=== PATIENT | female | born 1980 | race Asian ===

== ENCOUNTER 2018-10-13 01:53 | Inpatient (IN) | payer OTHER ==
[~2018-10-13] VITALS: Ht 170.2 cm; Wt 68.2 kg
[2018-10-13] MEDS ORDERED: LACTATED RINGERS 1,000 ML IV SCH (01:54)
[2018-10-13] MEDS ORDERED: OXYTOCIN 30U/ 0.9% NaCL 500ML 500 ML IV ONE (01:54)
[2018-10-13] MEDS ORDERED: D5%-LACTATED RINGERS 1,000 ML IV SCH (01:54)
[2018-10-13] MEDS ORDERED: NEWBORN KIT ONE (02:00)
[2018-10-13] MEDS ORDERED: FENTANYL PF 100 MCG/2ML IVPush PRN (02:00)
[2018-10-13] MEDS ORDERED: CALCIUM CARBONATE 500 MG TAB.CHEW PO PRN (02:00)
[2018-10-13] MEDS ORDERED: ONDANSETRON 2MG/ML, 2ML IVPush PRN (02:00)
[2018-10-13] MEDS ORDERED: FENTANYL PF 100 MCG/2ML IV PRN (02:00)
[2018-10-13] MEDS ORDERED: TERBUTALINE 1 MG/ML, 1ML IVPush PRN (02:00)
[2018-10-13] MEDS ORDERED: SODIUM CITRATE/CITRIC ACID 30 ML UDC PO PRN (02:00)
[2018-10-13] MEDS ORDERED: METOCLOPRAMIDE 5 MG/ML, 2ML IVPush PRN (02:00)
[2018-10-13] MEDS ORDERED: OXYTOCIN 30U/ 0.9% NaCL 500ML 500 ML ONE ×2 (02:00→05:27)
[2018-10-13] MEDS ORDERED: BUPIVACAINE 0.25% ONE (02:13)
[2018-10-13] MEDS ORDERED: FENTANYL/BUPIV./NS/PF 250 ML EPIDCONT ONE (02:13)
[2018-10-13 02:17] LABS: BASOPHILS # (AUTO) 0.12 x10^3/uL (0-0.1); BASOPHILS % (AUTO) 1 % (0-1); EOSINOPHILS # (AUTO) 0.09 x10^3/uL (0-0.4); EOSINOPHILS % (AUTO) 1 % (1-7); LYMPHOCYTES # (AUTO) 1.23 x10^3/uL (1-3.4); LYMPHOCYTES % (AUTO) 11 % (22-44); MD NO; MEAN CORPUSCULAR HEMOGLOBIN 31.5 pg (27.0-34.8); MEAN CORPUSCULAR HGB CONC 34.2 g/dL (32.4-35.8); MEAN CORPUSCULAR VOLUME 92.1 fL (80-100); MEAN PLATELET VOLUME 8.5 fL (7.4-10.4); MONOCYTES # (AUTO) 0.57 x10^3/uL (0.2-0.8); MONOCYTES % (AUTO) 5 % (2-9); NEUTROPHILS # (AUTO) 9.27 x10^3/uL (1.8-6.8); NEUTROPHILS % (AUTO) 82 % (42-75); PLATELET COUNT 205 x10^3/uL (130-400); RED BLOOD COUNT 4.23 x10^6/uL (3.82-5.3); RED CELL DISTRIBUTION WIDTH 12.4 % (9.6-15.2)
[2018-10-13 03:19] VITALS: BP 120/69
[2018-10-13] MEDS ORDERED: MISOPROSTOL 200 MCG TABLET PR PRN (05:30)
[2018-10-13] MEDS ORDERED: OXYcodone/APAP 5/325MG TABLET PO PRN ×2 (05:30)
[2018-10-13] MEDS ORDERED: ACETAMINOPHEN 325 MG TABLET PO PRN (05:30)
[2018-10-13] MEDS ORDERED: MEASLES,MUMPS&RUBELLA VACC/PF 0.5 ML SQ PRN (05:30)
[2018-10-13] MEDS ORDERED: DIPH,PERTUSS(ACELL),TET VAC/PF NC IM-VACC PRN (05:30)
[2018-10-13] MEDS ORDERED: METHYLERGONOVINE 0.2 MG/ML IM PRN (05:30)
[2018-10-13] MEDS ORDERED: RHOGAM FROM BLOOD BANK 1 NOTE EA IM/IV ONE (05:30)
[2018-10-13] MEDS ORDERED: CARBOPROST TROMETHAMINE 250 MCG/ML, 1ML IM PRN (05:30)
[2018-10-13] MEDS: OXYTOCIN 30U/ 0.9% NaCL 500ML 500 ML IV SCH ×2 (05:38→15:13)
[2018-10-13] MEDS ORDERED: PREN1TAB60 PO (06:09)
[2018-10-13] MEDS: IBUPROFEN 600 MG TABLET PO PRN ×2 (08:29→20:50)
[2018-10-13 08:30] VITALS: BP 114/69
[2018-10-13] MEDS: PRENATAL VIT/IRON/FA 1 EACH TABLET PO SCH (09:00)
[2018-10-13 12:40] VITALS: BP 103/67
[2018-10-13 12:43] LABS: MEAN CORPUSCULAR HEMOGLOBIN 31.5 pg (27.0-34.8); MEAN CORPUSCULAR HGB CONC 34.4 g/dL (32.4-35.8); MEAN CORPUSCULAR VOLUME 91.7 fL (80-100); MEAN PLATELET VOLUME 8.5 fL (7.4-10.4); PLATELET COUNT 189 x10^3/uL (130-400); RED CELL DISTRIBUTION WIDTH 12.2 % (9.6-15.2)
[2018-10-13 13:03] LABS: BASOPHILS # (AUTO) 0.04 x10^3/uL (0-0.1); BASOPHILS % (AUTO) 0 % (0-1); EOSINOPHILS # (AUTO) 0.03 x10^3/uL (0-0.4); EOSINOPHILS % (AUTO) 0 % (1-7); LYMPHOCYTES # (AUTO) 1.25 x10^3/uL (1-3.4); LYMPHOCYTES % (AUTO) 9 % (22-44); MD SCAN; MONOCYTES % (AUTO) 5 % (2-9); NEUTROPHILS # (AUTO) 12.28 x10^3/uL (1.8-6.8); NEUTROPHILS % (AUTO) 86 % (42-75)
[2018-10-13 20:45] VITALS: BP 111/72
[2018-10-13] MEDS: DOCUSATE 100 MG CAPSULE PO PRN (20:50)
[2018-10-14] MEDS: OXYTOCIN 30U/ 0.9% NaCL 500ML 500 ML IV SCH ×3 (00:12→20:43)
[2018-10-14 01:16] VITALS: BP 107/69
[2018-10-14] MEDS: IBUPROFEN 600 MG TABLET PO PRN ×4 (03:01→21:54)
[2018-10-14 07:45] VITALS: BP 104/69
[2018-10-14] MEDS: PRENATAL VIT/IRON/FA 1 EACH TABLET PO SCH (08:57)
[2018-10-14] MEDS: DOCUSATE 100 MG CAPSULE PO PRN (08:57)
[2018-10-14 21:00] VITALS: BP 116/75
[2018-10-15] MEDS: IBUPROFEN 600 MG TABLET PO PRN ×2 (04:17→10:41)
[2018-10-15] MEDS: OXYTOCIN 30U/ 0.9% NaCL 500ML 500 ML IV SCH (04:57)
[2018-10-15 07:05] VITALS: BP 129/75
[2018-10-15] MEDS: PRENATAL VIT/IRON/FA 1 EACH TABLET PO SCH (07:59)
[2018-10-15] MEDS: DOCUSATE 100 MG CAPSULE PO PRN (07:59)
[2018-10-15] MEDS ORDERED: LIDOCAINE/PRILOCAINE CRM W/TEG 5GM TP ONE (09:00)
[2018-10-15] MEDS ORDERED: LIDOCAINE-MPF 1%, 2ML INFIL ONE (09:00)
== END 2018-10-15 14:45 | disposition home or self-care (01) | DRG 807 ==
LOC: LDOP 01:53 → LDIP 02:01 → 2NW 08:22
PROVIDERS: ADMIT Obstetrics & Gynecology; ATTEND Obstetrics & Gynecology
PROC: 10E0XZZ Delivery of Products of Conception, External Approach (ICD-10-PCS; principal; 2018-10-13)
PROC: 0HQ9XZZ Repair Perineum Skin, External Approach (ICD-10-PCS; 2018-10-13)
PROC: 3E0R3BZ Introduction of Anesthetic Agent into Spinal Canal, Percutaneous Approach (ICD-10-PCS; 2018-10-13)
PROC: 00HU33Z Insertion of Infusion Device into Spinal Canal, Percutaneous Approach (ICD-10-PCS; 2018-10-13)
DX: O69.1XX0 Labor and delivery complicated by cord around neck, with compression, not applicable or unspecified (principal); Z37.0 Single live birth; O70.0 First degree perineal laceration during delivery; Z3A.37 37 weeks gestation of pregnancy
CPT/HCPCS: 36415; 85025; 86850; 86900; 90715; G0378; J3490; J2590; J3010; J7120

== ENCOUNTER 2020-02-26 00:12 | Inpatient (IN) | payer OTHER ==
[~2020-02-26] VITALS: Ht 170.2 cm; Wt 65.9 kg
[~2020-02-26 00:12] MED LIST: PREN1TAB60 PO
[2020-02-26] MEDS ORDERED: D5%-LACTATED RINGERS 1,000 ML IV SCH (00:29)
[2020-02-26] MEDS ORDERED: OXYTOCIN 30U/ 0.9% NaCL 500ML 500 ML IV ONE (00:29)
[2020-02-26] MEDS ORDERED: TERBUTALINE 1 MG/ML, 1ML IVPush PRN (00:30)
[2020-02-26] MEDS ORDERED: ONDANSETRON 2MG/ML, 2ML IVPush PRN (00:30)
[2020-02-26] MEDS ORDERED: FENTANYL PF 100 MCG/2ML IVPush PRN (00:30)
[2020-02-26] MEDS ORDERED: METOCLOPRAMIDE 5 MG/ML, 2ML IVPush PRN (00:30)
[2020-02-26] MEDS ORDERED: SODIUM CITRATE/CITRIC ACID 30 ML UDC PO PRN (00:30)
[2020-02-26] MEDS ORDERED: FENTANYL PF 100 MCG/2ML IV PRN (00:30)
[2020-02-26] MEDS ORDERED: ALUMINUM/MAG/SIMETHICONE 30 ML UDC PO PRN (00:30)
[2020-02-26] MEDS ORDERED: TERBUTALINE 1 MG/ML, 1ML SQ PRN (00:30)
[2020-02-26] MEDS ORDERED: CALCIUM CARBONATE 500 MG TAB.CHEW PO PRN (00:30)
[2020-02-26] MEDS ORDERED: NEWBORN KIT ONE ×2 (00:45→00:59)
[2020-02-26 00:57] VITALS: BP 119/68
[2020-02-26] MEDS ORDERED: BETAMETHASONE 6 MG/ML, 5ML IM ONE ×2 (00:59→01:00)
[2020-02-26] MEDS ORDERED: LIDOCAINE 1%, 20ML ONE (00:59)
[2020-02-26] MEDS ORDERED: MISOPROSTOL 200 MCG TABLET ONE (00:59)
[2020-02-26] MEDS: LACTATED RINGERS 1,000 ML IV SCH ×2 (01:15→02:09)
[2020-02-26 01:29] LABS: BASOPHILS # (AUTO) 0.03 x10^3/uL (0-0.1); BASOPHILS % (AUTO) 0 % (0-1); EOSINOPHILS % (AUTO) 3 % (1-7); LYMPHOCYTES % (AUTO) 16 % (22-44); MD NO; MEAN CORPUSCULAR HEMOGLOBIN 31.4 pg (27.0-34.8); MEAN CORPUSCULAR HGB CONC 33.6 g/dL (32.4-35.8); MEAN CORPUSCULAR VOLUME 93.4 fL (80-100); MEAN PLATELET VOLUME 8.6 fL (7.4-10.4); MONOCYTES # (AUTO) 0.63 x10^3/uL (0.2-0.8); MONOCYTES % (AUTO) 8 % (2-9); NEUTROPHILS # (AUTO) 5.64 x10^3/uL (1.8-6.8); NEUTROPHILS % (AUTO) 73 % (42-75); PLATELET COUNT 173 x10^3/uL (130-400); RED BLOOD COUNT 3.95 x10^6/uL (3.82-5.3); RED CELL DISTRIBUTION WIDTH 12.2 % (9.6-15.2)
[2020-02-26] MEDS ORDERED: FENTANYL/BUPIV./NS/PF 250 ML EPIDCONT ONE (01:36)
[2020-02-26] MEDS ORDERED: OXYTOCIN 30U/ 0.9% NaCL 500ML 500 ML ONE ×2 (02:05→03:57)
[2020-02-26] MEDS ORDERED: LACTATED RINGERS 1,000 ML IV SCH (02:08)
[2020-02-26] MEDS ORDERED: FENTANYL/BUPIV./NS/PF 250 ML EPIDCONT SCH (02:08)
[2020-02-26] MEDS ORDERED: NALOXONE 0.4 MG/ML, 1ML IVPush PRN (02:30)
[2020-02-26] MEDS ORDERED: EPHEDRINE 50 MG/ML, 1ML IVPush PRN (02:30)
[2020-02-26] MEDS ORDERED: LACTATED RINGERS 1,000 ML IVBOLUS PRN (02:30)
[2020-02-26] MEDS: OXYTOCIN 30U/ 0.9% NaCL 500ML 500 ML IV SCH ×3 (03:07→04:18)
[2020-02-26] MEDS ORDERED: BISACODYL 10 MG SUPP PR PRN (03:30)
[2020-02-26] MEDS ORDERED: CARBOPROST TROMETHAMINE 250 MCG/ML, 1ML IM PRN (03:30)
[2020-02-26] MEDS ORDERED: OXYcodone/APAP 5/325MG TABLET PO PRN ×2 (03:30)
[2020-02-26] MEDS ORDERED: IBUPROFEN 800 MG TABLET PO PRN (03:30)
[2020-02-26] MEDS ORDERED: ACETAMINOPHEN 325 MG TABLET PO PRN (03:30)
[2020-02-26] MEDS ORDERED: MISOPROSTOL 200 MCG TABLET PO PRN (03:30)
[2020-02-26] MEDS ORDERED: GLYCERIN ADULT SUPP PR PRN (03:30)
[2020-02-26] MEDS ORDERED: ONDANSETRON 2MG/ML, 2ML IV PRN (03:30)
[2020-02-26] MEDS ORDERED: SIMETHICONE 80 MG CHEW TAB PO PRN (03:30)
[2020-02-26] MEDS ORDERED: METHYLERGONOVINE 0.2 MG/ML IM PRN (03:30)
[2020-02-26] MEDS ORDERED: METOCLOPRAMIDE 5 MG/ML, 2ML IV PRN (03:30)
[2020-02-26] MEDS ORDERED: IBUPROFEN 600 MG TABLET ONE (03:57)
[2020-02-26] MEDS: IBUPROFEN 600 MG TABLET PO PRN ×3 (04:05→19:02)
[2020-02-26] MEDS ORDERED: MISOPROSTOL 200 MCG TABLET PR PRN (04:30)
[2020-02-26 05:20] VITALS: BP 108/61
[2020-02-26 07:30] VITALS: BP 118/73
[2020-02-26] MEDS: PRENATAL VIT/IRON/FA 1 EACH TABLET PO SCH (09:07)
[2020-02-26] MEDS: DOCUSATE 100 MG CAPSULE PO PRN (09:07)
[2020-02-26 11:59] LABS: MEAN CORPUSCULAR HEMOGLOBIN 31.2 pg (27.0-34.8); MEAN CORPUSCULAR HGB CONC 33.1 g/dL (32.4-35.8); MEAN CORPUSCULAR VOLUME 94.4 fL (80-100); MEAN PLATELET VOLUME 8.8 fL (7.4-10.4); PLATELET COUNT 175 x10^3/uL (130-400); RED BLOOD COUNT 3.85 x10^6/uL (3.82-5.3); RED CELL DISTRIBUTION WIDTH 12.1 % (9.6-15.2)
[2020-02-26 12:40] LABS: BASOPHILS # (AUTO) 0.01 x10^3/uL (0-0.1); BASOPHILS % (AUTO) 0 % (0-1); EOSINOPHILS % (AUTO) 0 % (1-7); LYMPHOCYTES # (AUTO) 0.72 x10^3/uL (1-3.4); LYMPHOCYTES % (AUTO) 6 % (22-44); MD SCAN; MONOCYTES # (AUTO) 0.21 x10^3/uL (0.2-0.8); MONOCYTES % (AUTO) 2 % (2-9); NEUTROPHILS # (AUTO) 11.87 x10^3/uL (1.8-6.8); NEUTROPHILS % (AUTO) 93 % (42-75)
[2020-02-26 13:10] VITALS: BP 116/64
[2020-02-26 20:00] VITALS: BP 113/66
[2020-02-27] MEDS: DOCUSATE 100 MG CAPSULE PO PRN (07:35)
[2020-02-27] MEDS: PRENATAL VIT/IRON/FA 1 EACH TABLET PO SCH (07:38)
[2020-02-27 07:57] VITALS: BP 106/67
[2020-02-27] MEDS ORDERED: IBUP-1223 PO (09:51)
== END 2020-02-27 12:20 | disposition home or self-care (01) | DRG 805 ==
LOC: LDOP 00:12 → LDIP 00:29 → 2NW 05:09
PROVIDERS: ADMIT Obstetrics & Gynecology; ATTEND Obstetrics & Gynecology
PROC: 10E0XZZ Delivery of Products of Conception, External Approach (ICD-10-PCS; principal; 2020-02-26)
PROC: 3E0R3BZ Introduction of Anesthetic Agent into Spinal Canal, Percutaneous Approach (ICD-10-PCS; 2020-02-26)
PROC: 00HU33Z Insertion of Infusion Device into Spinal Canal, Percutaneous Approach (ICD-10-PCS; 2020-02-26)
PROC: 10907ZC Drainage of Amniotic Fluid, Therapeutic from Products of Conception, Via Natural or Artificial Opening (ICD-10-PCS; 2020-02-26)
DX: O69.81X0 Labor and delivery complicated by cord around neck, without compression, not applicable or unspecified (principal); O60.14X0 Preterm labor third trimester with preterm delivery third trimester, not applicable or unspecified; Z37.0 Single live birth; Z3A.36 36 weeks gestation of pregnancy; Z80.1 Family history of malignant neoplasm of trachea, bronchus and lung
CPT/HCPCS: 36415; 85025; 86592; 86850; 86900; G0378; J0702; J2590; J7120